=== PATIENT | female | born 1940 | race Caucasian/White ===

== ENCOUNTER 2021-01-18 08:20 | Emergency (ER) | payer MEDICARE ==
[~2021-01-18 08:20] MED LIST: ASPIR 8181 MG PO; CATAPRES 0.1MG0.1 MG PO; CERAVE453 GM TOP; COUMADIN6 MG PO; COZAAR 50MG TAB50 MG PO; CRESTOR 10 MG T10 MG PO; ELAVIL 25 MG TA25 MG PO; FLONASE 0.05% N16 GM; FUROSEMIDE40 MG PO; GLUCOPHAGE 500500 MG PO; LAMICTAL100 MG PO; LOPRESSOR 25 MG25 MG PO; NEXIUM40 MG PO; NITROGLYCERIN0.4 MG SL; PRAVASTATIN SOD20 MG PO; SOTALOL80 MG PO; TYLENOL325 MG PO; VALIUM5 MG PO; VITAMIN D350000 UNIT PO
[2021-01-18 11:30] LABS: RED BLOOD COUNT 4.44 M/UL (4.00-5.10); WHITE BLOOD COUNT 6.8 K/UL (4.5-11.0)
[2021-01-18 12:06] LABS: BUN/CREATININE RATIO 24 (0-10)
== END 2021-01-18 13:35 | disposition home or self-care (01) ==
LOC: ER1 08:20
PROVIDERS: Physician Assistant
DX: M51.36 Other intervertebral disc degeneration, lumbar region (principal); M16.0 Bilateral primary osteoarthritis of hip; I48.91 Unspecified atrial fibrillation; I25.10 Atherosclerotic heart disease of native coronary artery without angina pectoris; I11.9 Hypertensive heart disease without heart failure; Z79.01 Long term (current) use of anticoagulants; Z88.5 Allergy status to narcotic agent
CPT/HCPCS: 72131; 72192; 80053; 81001; 85025; 85610; 99284

== ENCOUNTER 2022-01-06 21:55 | Inpatient (IN) | payer MEDICARE ==
[~2022-01-06] VITALS: Ht 165.1 cm; Wt 61.3 kg
[2022-01-06 22:13] LABS: RED BLOOD COUNT 4.1 M/UL (4.00-5.10); WHITE BLOOD COUNT 6.7 K/UL (4.5-11.0)
[2022-01-06 22:36] LABS: BUN/CREATININE RATIO 35 (0-10)
[2022-01-07 05:03] LABS: HEMOGLOBIN 11.9 gm/dl (12.3-15.3); RED BLOOD COUNT 3.76 M/UL (4.00-5.10); WHITE BLOOD COUNT 8.3 K/UL (4.5-11.0)
[2022-01-07 05:36] LABS: BUN/CREATININE RATIO 32 (0-10)
[2022-01-07] MEDS ORDERED: PRAVASTATIN SOD20 MG PO (08:30)
[2022-01-07] MEDS ORDERED: AMLODIPINE BESYL5 MG PO (08:31)
[2022-01-07] MEDS ORDERED: CELECOXIB100 MG PO (08:31)
[2022-01-07] MEDS ORDERED: ROPINIROLE HC0.25 MG PO (08:32)
[2022-01-07] MEDS ORDERED: CLARITIN10 M2 PO (08:35)
[2022-01-08 05:11] LABS: HEMOGLOBIN 11.5 gm/dl (12.3-15.3); RED BLOOD COUNT 3.65 M/UL (4.00-5.10)
[2022-01-08 05:15] LABS: WHITE BLOOD COUNT 4.8 K/UL (4.5-11.0)
[2022-01-08 05:35] LABS: BUN/CREATININE RATIO 28 (0-10)
[2022-01-09 04:46] LABS: BUN/CREATININE RATIO 22 (0-10)
--- NOTE | 2022-01-09 13:26 | NUR ---
PATIENT ROOM AIR SATURATION IS 86%
--- NOTE | 2022-01-09 13:34 | NUR ---
01/09/22 1300 OXYGEN SATURATION 86% ROOM AIR, PT PLACED BACK ON OXYGEN AT 2L/NC WITH O2 RETURNING TO 92%
[2022-01-10 03:20] LABS: BUN/CREATININE RATIO 32 (0-10)
[2022-01-11 02:54] LABS: BUN/CREATININE RATIO 35 (0-10)
[2022-01-11] MEDS ORDERED: STOOL SOFTENER250 MG PO (15:35)
[2022-01-11] MEDS ORDERED: TIKOSYN250 MCG PO (15:35)
[2022-01-11] MEDS ORDERED: FUROSEMIDE40 MG PO (15:35)
== END 2022-01-11 16:35 | disposition home or self-care (01) | DRG 280 ==
LOC: ER1 21:55 → CDU 23:11 → PROG CARE 23:11
PROVIDERS: Emergency Medicine; Internal Medicine Infectious Disease; ADMIT Internal Medicine
PROC: 5A2204Z Restoration of Cardiac Rhythm, Single (ICD-10-PCS; principal; 2022-01-08)
PROC: B24BZZZ Ultrasonography of Heart with Aorta (ICD-10-PCS; 2022-01-09)
DX: I11.0 Hypertensive heart disease with heart failure (principal); I50.33 Acute on chronic diastolic (congestive) heart failure; I21.A1 Myocardial infarction type 2; J96.21 Acute and chronic respiratory failure with hypoxia; J96.22 Acute and chronic respiratory failure with hypercapnia; I48.19 Other persistent atrial fibrillation; K92.1 Melena; I48.92 Unspecified atrial flutter; Z20.822 Contact with and (suspected) exposure to COVID-19; Z66 Do not resuscitate; I25.10 Atherosclerotic heart disease of native coronary artery without angina pectoris; I42.2 Other hypertrophic cardiomyopathy; I34.0 Nonrheumatic mitral (valve) insufficiency; I44.7 Left bundle-branch block, unspecified; M79.7 Fibromyalgia; I49.5 Sick sinus syndrome; G40.909 Epilepsy, unspecified, not intractable, without status epilepticus; M06.9 Rheumatoid arthritis, unspecified; E87.6 Hypokalemia; Z95.1 Presence of aortocoronary bypass graft; Z79.899 Other long term (current) drug therapy; Z79.01 Long term (current) use of anticoagulants; Z95.0 Presence of cardiac pacemaker; Z95.4 Presence of other heart-valve replacement; Z98.890 Other specified postprocedural states; Z82.49 Family history of ischemic heart disease and other diseases of the circulatory system; Z82.3 Family history of stroke; Z88.8 Allergy status to other drugs, medicaments and biological substances; Z79.82 Long term (current) use of aspirin
CPT/HCPCS: ECHO; 36415; 71045; 80048; 80053; 81001; 82550; 82553; 83735; 83880; 84132; 84439; 84443; 84484; 85025; 85610; 85730; 87040; 93005; 93306; 94760; 96374; 99285; J1940; U0002

== ENCOUNTER → 2022-03-17 | Outpatient (CLI) | payer MEDICARE ==
[~2022-03-17] MED LIST changes: +AMLODIPINE BESYL5 MG PO; +CELECOXIB100 MG PO; +CLARITIN10 M2 PO; +ROPINIROLE HC0.25 MG PO; +STOOL SOFTENER250 MG PO; +TIKOSYN250 MCG PO
== END ==
LOC: KOH-I 11:30
DX: M25.512 Pain in left shoulder (principal); M85.812 Other specified disorders of bone density and structure, left shoulder
CPT/HCPCS: 73030